=== PATIENT | female | born 1985 | race Caucasian/White ===

== ENCOUNTER 2017-02-23 16:29 | Emergency (ER) | payer OTHER, BC ==
[~2017-02-23] VITALS: Ht 162.6 cm; Wt 85.0 kg
[~2017-02-23 16:29] MED LIST: CALC500C3; PRENTAB26 PO
[2017-02-23 16:48] VITALS: TEMP 36.7; Ht 162.6 cm; Wt 85.0 kg
[2017-02-23] MEDS ORDERED: SODIUM CHLORIDE 0.9% 1000ML 1,000 ML IV STA (17:13)
[2017-02-23 17:43] LABS: BASO % 0.4 %; BASO ABS # 0.04 K/uL (0-0.2); COMPLETE YES; EOS % 1.8 %; HEMATOCRIT 42.3 % (37-47); IG% 0.2 %; LYMPH % 30.6 %; LYMPH ABS # 3.37 K/uL (1.2-3.4); MEAN CELL VOLUME 84.6 fL (80-100); MEAN CORPUSCULAR HGB CONC 34.3 g/dl (32-36); MONO % 6.4 %; NEUT % 60.6 %; PLATELET COUNT 327 K/uL (130-400); WHITE BLOOD COUNT 11.02 K/uL (4.8-10.8)
[2017-02-23 17:52] LABS: INR 0.9 (0.9-1.1); PROTHROMBIN TIME (PATIENT) 9.6 SECONDS (9.0-12.0)
--- NOTE | 2017-02-23 17:53 | DIAGNOSTIC IMAGING REPORT ---
CHEST ONE VIEW PORTABLE CLINICAL HISTORY: Altered mental status. Weakness. COMPARISON STUDY: No previous studies for comparison. FINDINGS: The cardiac and mediastinal contours are normal. There is no evidence of focal pulmonary consolidation. There is no evidence of failure. No pleural effusions are visualized.[ IMPRESSION: No active disease in the chest. Electronically signed by: Milton Green M.D. 02/23/2017 5:52 PM Dictated Date/Time: 02/23/2017 5:52 PM
[2017-02-23 17:57] LABS: ALT/SGPT 30 U/L (12-78); BLOOD UREA NITROGEN 10 mg/dl (7-18); BUN/CREATININE RATIO 12.6 (10-20); CALCIUM 9.2 mg/dl (8.5-10.1); CARBON DIOXIDE 25 mmol/L (21-32); CHLORIDE 108 mmol/L (98-107); CREATININE 0.78 mg/dl (0.60-1.20); GLUCOSE 89 mg/dl (70-99); MAGNESIUM 2.1 mg/dl (1.8-2.4); POTASSIUM 3.9 mmol/L (3.5-5.1); SODIUM 138 mmol/L (136-145)
[2017-02-23 18:05] LABS: ALKALINE PHOSPHATASE 63 U/L (45-117); AST/SGOT 17 U/L (15-37); CKMB/CK RATIO 0.6 (0-3.0)
[2017-02-23 18:32] LABS: PREG INTERNAL NEGATIVE QC NEG CLEAR BACKGROUND; PREG INTERNAL POSITIVE QC POS CONTROL LINE
[2017-02-23 18:38] LABS: URINE APPEARANCE CLEAR (CLEAR); URINE BILIRUBIN NEG (NEG); URINE COLOR YELLOW; URINE NITRITE NEG (NEG); UROBILINOGEN NEG (NEG); ZZUR CULT IF INDIC CLEAN CATCH NO
[2017-02-23 19:12] LABS: MANUAL MICROSCOPIC REQUIRED? NO; REVIEW REQ? NO
--- NOTE | 2017-02-23 19:22 | DIAGNOSTIC IMAGING REPORT ---
CT HEAD WITHOUT CONTRAST (CT) CLINICAL HISTORY: Severe headache COMPARISON STUDY: No previous studies for comparison. TECHNIQUE: Axial CT of the brain is performed from the vertex to the skull base. IV contrast was not administered for this examination. A dose lowering technique was utilized adhering to the principles of ALARA. CT DOSE: 537.48 mGy.cm FINDINGS: No intra or extra-axial mass lesions are visualized. There is no CT evidence of acute cortical infarction. There is no evidence of midline shift. There is no acute hemorrhage. No calvarial fractures are visualized. There is no evidence of pathologic ventricular dilatation. There is no evidence of acute sinusitis IMPRESSION: Normal noncontrast head CT. Electronically signed by: Milton Green M.D. 02/23/2017 7:21 PM Dictated Date/Time: 02/23/2017 7:20 PM
[2017-02-23 19:24] VITALS: BP 138/82; PULSE 62; O2SAT 98
--- NOTE | 2017-02-23 19:32 | EMERGENCY ROOM VISIT NOTE ---
History Report prepared by Akin: Mitra Marroquin Under the Supervision of: Dr. Niles Cervantes D.O. First contact with patient: 17:05 Chief Complaint: HYPERTENSION Stated Complaint: DIZZY,NUMBNESS,HIGH BLOOD PRESSURE History of Present Illness The patient is a 31 year old female who presents to the Emergency Room with complaints of persistent dizziness that began around 1430. The patient states that while at work today she bent over and suddenly became dizzy. She states that she sat back up and continued to feel dizzy, but then became hot, diaphoretic, nauseous, and tingly. 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 She was found to be hypertensive at 167/90 mmHg. The patient states that she has been having headaches once per week, noting that last night she took ibuprofen for a headache. She states that this morning she still noticed a slight headache. The patient states that she is on control and Wellbutrin. She states that her last normal menstrual period was three weeks ago. The patient denies any recent cold, fever, chest pain, or shortness of breath. Source of History: patient Onset: 1430 Position: other (global) Quality: other (dizziness) Timing: other (persistent) Associated Symptoms: + diaphoresis, + nausea, No fevers, No chest pain, No SOB Note: Associated Symptoms: tingling, hypertensive, feeling hot Review of Systems See HPI for pertinent positives & negatives. A total of 10 systems reviewed and were otherwise negative. Past Medical & Surgical Surgical Problems: (1) S/P appendectomy Family History No pertinent family history stated. Social History Smoking Status: Current Every Day Smoker Marital Status: Housing Status: lives with significant other Occupation Status: employed Current/Historical Medications Scheduled Calcium Carbonate (Tums), 2 PRN Multivit/Min/Iron/Fol Ac/Pren ( Vitamin), 1 TAB PO DAILY Allergies Coded Allergies: No Known Allergies (Verified Allergy, Mild, 11/13/06) Physical Exam Vital Signs Date Time Temp Pulse Resp B/P (MAP) Pulse Ox O2 Delivery O2 Flow Rate FiO2 02/23/17 19:24 62 20 138/82 98 Room Air 02/23/17 18:28 85 18 141/93 100 Room Air 02/23/17 17:34 70 02/23/17 17:30 78 18 143/84 98 Room Air 02/23/17 17:20 81 18 148/73 98 Room Air 78 143/84 81 139/89 02/23/17 16:48 36.7 88 20 161/100 97 Room Air Physical Exam CONSTITUTIONAL/VITAL SIGNS: Reviewed / noted above. GENERAL: Non-toxic in appearance. INTEGUMENTARY: Warm, dry, and [place]. HEAD: Normocephalic. EYES: without scleral icterus or trauma. ENT/OROPHARYNX: clear and moist. LYMPHADENOPATHY/NECK: Is supple without lymphadenopathy or meningismus. RESPIRATORY: Lungs clear and equal. CARDIOVASCULAR: Regular rate and rhythm. GI/ABDOMEN: Soft and nontender. No organomegaly or pulsatile mass. No rebound or guarding. Normal bowel sounds. EXTREMITIES: Warm and well perfused. BACK: No CVA tenderness. NEUROLOGICAL: Intact without focal deficits. PSYCHIATRIC: normal affect. MUSCULOSKELETAL: Normally developed with good muscle tone. Medical Decision & Procedures ER Provider Diagnostic Interpretation: Radiology results as stated below per my review and radiologist interpretation: CHEST ONE VIEW PORTABLE CLINICAL HISTORY: Altered mental status. Weakness. COMPARISON STUDY: No previous studies for comparison. FINDINGS: The cardiac and mediastinal contours are normal. There is no evidence of focal pulmonary consolidation. There is no evidence of failure. No pleural effusions are visualized.[ IMPRESSION: No active disease in the chest. Electronically signed by: Milton Green M.D. 02/23/2017 5:52 PM Dictated Date/Time: 02/23/2017 5:[address] HEAD WITHOUT CONTRAST (CT) CLINICAL HISTORY: Severe headache COMPARISON STUDY: No previous studies for comparison. TECHNIQUE: Axial CT of the brain is performed from the vertex to the skull base. IV contrast was not administered for this examination. A dose lowering technique was utilized adhering to the principles of ALARA. CT DOSE: 537.48 mGy.cm FINDINGS: No intra or extra-axial mass lesions are visualized. There is no CT evidence of acute cortical infarction. There is no evidence of midline shift. There is no acute hemorrhage. No calvarial fractures are visualized. There is no evidence of pathologic ventricular dilatation. There is no evidence of acute sinusitis IMPRESSION: Normal noncontrast head CT. Electronically signed by: Milton Green M.D. 02/23/2017 7:21 PM Dictated Date/Time: 02/23/2017 7:20 PM Laboratory Results 02/23/17 17:25 Red Blood Count 5.00, Mean Corpuscular Volume 84.6, Mean Corpuscular Hemoglobin 29.0, Mean Corpuscular Hemoglobin Concent 34.3, Mean Platelet Volume 10.0, Neutrophils (%) (Auto) 60.6, Lymphocytes (%) (Auto) 30.6, Monocytes (%) (Auto) 6.4, Eosinophils (%) (Auto) 1.8, Basophils (%) (Auto) 0.4, Neutrophils # (Auto) 6.68, Lymphocytes # (Auto) 3.37, Monocytes # (Auto) 0.71, Eosinophils # (Auto) 0.20, Basophils # (Auto) 0.04 02/23/17 17:25 Test 02/23/17 17:25 02/23/17 18:19 White Blood Count 11.02 K/uL (4.8-10.8) Red Blood Count 5.00 M/uL (4.2-5.4) Hemoglobin 14.5 g/dL (12.0-16.0) Hematocrit 42.3 % (37-47) Mean Corpuscular Volume 84.6 fL (80-100) Mean Corpuscular Hemoglobin 29.0 pg (25-34) Mean Corpuscular Hemoglobin Concent 34.3 g/dl (32-36) Platelet Count 327 K/uL (130-400) Mean Platelet Volume 10.0 fL (7.4-10.4) Neutrophils (%) (Auto) 60.6 % Lymphocytes (%) (Auto) 30.6 % Monocytes (%) (Auto) 6.4 % Eosinophils (%) (Auto) 1.8 % Basophils (%) (Auto) 0.4 % Neutrophils # (Auto) 6.68 K/uL (1.4-6.5) Lymphocytes # (Auto) 3.37 K/uL (1.2-3.4) Monocytes # (Auto) 0.71 K/uL (0.11-0.59) Eosinophils # (Auto) 0.20 K/uL (0-0.5) Basophils # (Auto) 0.04 K/uL (0-0.2) RDW Standard Deviation 36.9 fL (36.4-46.3) RDW Coefficient of Variation 12.0 % (11.5-14.5) Immature Granulocyte % (Auto) 0.2 % Immature Granulocyte # (Auto) 0.02 K/uL (0.00-0.02) Prothrombin Time 9.6 SECONDS (9.0-12.0) Prothromb Time International Ratio 0.9 (0.9-1.1) Activated Partial Thromboplast Time 26.0 SECONDS (21.0-31.0) Partial Thromboplastin Ratio 1.0 Anion Gap 5.0 mmol/L (3-11) Est Creatinine Clear Calc Drug Dose 108.2 ml/min Estimated GFR () 115.8 Estimated GFR (Non- 99.9 BUN/Creatinine Ratio 12.6 (10-20) Calcium Level 9.2 mg/dl (8.5-10.1) Magnesium Level 2.1 mg/dl (1.8-2.4) Total Bilirubin 0.3 mg/dl (0.2-1) Direct Bilirubin < 0.1 mg/dl (0-0.2) Aspartate Amino Transf (AST/SGOT) 17 U/L (15-37) Alanine Aminotransferase (ALT/SGPT) 30 U/L (12-78) Alkaline Phosphatase 63 U/L (45-117) Total Creatine Kinase 163 U/L (26-192) Creatine Kinase MB 0.9 ng/ml (0.5-3.6) Creatine Kinase MB Ratio 0.6 (0-3.0) Total Protein 7.5 gm/dl (6.4-8.2) Albumin 3.9 gm/dl (3.4-5.0) Lipase 211 U/L (73-393) Thyroid Stimulating Hormone (TSH) 1.470 uIu/ml (0.300-4.500) Human Chorionic Gonadotropin, Qual NEG (NEG) Urine Color YELLOW Urine Appearance CLEAR (CLEAR) Urine pH 6.0 (4.5-7.5) Urine Specific [place] 1.010 (1.000-1.030) Urine Protein NEG (NEG) Urine Glucose (UA) NEG (NEG) Urine Ketones NEG (NEG) Urine Occult Blood NEG (NEG) Urine Nitrite NEG (NEG) Urine Bilirubin NEG (NEG) Urine Urobilinogen NEG (NEG) Urine Leukocyte Esterase NEG (NEG) Urine WBC (Auto) 0 /hpf (0-5) Urine RBC (Auto) 0-4 /hpf (0-4) Urine Hyaline Casts (Auto) 0 /lpf (0-5) Urine Epithelial Cells (Auto) 10-20 /lpf (0-5) Urine Bacteria (Auto) NEG (NEG) Laboratory results as stated above per my review. Medications Administered Medications (Trade) Dose Ordered Sig/Nickie Route Start Time Stop Time Status Last Admin Dose Admin Sodium Chloride 1,000 ml @ 999 mls/hr Q1H1M STAT IV 02/23/17 17:13 02/23/17 18:13 DC 02/23/17 17:13 999 MLS/HR ECG Indication: other (dizziness, hypertensive) Rate (beats per minute): 60 Rhythm: normal sinus Findings: no acute ischemic change, no ectopy ED Course 1705: Previous medical records were reviewed. The patient was evaluated in room A5. A complete history and physical examination was performed. 1712: Ordered Sodium Chloride 1000 ml @ 999 mls/hr IV. 1926: I reevaluated the patient and she is doing well. I discussed the exam findings with her and I discussed the treatment plan. She verbalized complete understanding and agreement. She is ready to go home. Medical Decision Differentials include: Acute coronary syndrome, myocardial infarction, CVA, TIA , anemia, infection, pneumonia, UTI, pyelonephritis, poor nutrition, dehydration , electrolyte disturbance, and hypoglycemia. This is a 31-year-old female who presents to the ED with a chief complaint of high blood pressure. The patient states that around 2:30 PM she was at work. 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 It was 167/90. She contacted her doctor and was referred here. The patient's last menstrual periods 3 weeks ago. She denies any recent illness, fevers, chest pains or shortness of breath. She denies any unusual headaches. Her blood pressure here was 161/100. This may be related to new onset hypertension versus situational hypertension. CBC and complete metabolic panel are normal. test is negative. TSH is normal. A chest x-ray is negative for acute disease. EKG shows normal sinus rhythm at a rate of 75. CT scan of the brain was normal and urine did not show infection. The patient's blood pressure at the end of her evaluation was 138/82. The patient was told to have this rechecked later this week by her PCP. She is felt to be stable for discharge. Medication Reconcilliation Current Medication List: was personally reviewed by me Blood Pressure Screening Patient's blood pressure: Elevated blood pressure Blood pressure disposition: Referred to PCP Impression Primary Impression: Dizziness Scribe Attestation The scribe's documentation has been prepared under my direction and personally reviewed by me in its entirety. I confirm that the note above accurately reflects all work, treatment, procedures, and medical decision making performed by me. Departure Information Dispostion Home / Self-Care Referrals iDana Mcmahan M.D. (PCP) Patient Instructions My [facility] Additional Instructions Follow-up with your doctor for further care and evaluation in 1-2 days. Return to the emergency department for worsening or new symptoms or any concerns. You have been examined and treated today on an emergency basis only. This is not a substitute for, or an effort to provide, complete comprehensive medical care. It is impossible to recognize and treat all injuries or illnesses in a single emergency department visit. It is therefore important that you follow up closely with your doctor. Call as soon as possible for an appointment. Have your blood pressure rechecked later this week.
[2017-02-23] MEDS ORDERED: BCPILLS PO (19:35)
[2017-02-23] MEDS ORDERED: BUPR-79 PO (19:36)
== END 2017-02-23 19:51 | disposition home or self-care (01) ==
LOC: C.EDB 16:31 → C.EDA 19:51
DX: R42 Dizziness and giddiness (principal); F17.200 Nicotine dependence, unspecified, uncomplicated; Z98.890 Other specified postprocedural states

== ENCOUNTER 2019-07-01 07:32 | Inpatient (IN) ==
--- OUTSIDE RECORDS SUMMARY | 2019-07-01 07:35 | External Medical Summary | Continuity of Care Document ---
:1985 Author Name Melody Bronson Address Unavailable Unavailable , Care Team Providers Name Role Phone Gold Guadarrama DO Unavailable [email or web address] [email or web address], UNKNOWN Unavailable Unavailable Unavailable Unavailable Unavailable Problems Active medical history not documented Allergies and Adverse Reactions No Known Drug Allergies (Allergy) Medications Medications not documented Procedures History of Laparoscopy With Salpingostomy Status: Completed History of Appendectomy Status: Complete d History of Oral Surgery Tooth Extraction Status: Completed Immunizations Immunizations not documented Family History Father Family history of Hypertension (V17.49) Status: Active Family history of Pure Hypercholesterolemia Status: Active Mother Family history of Graves' Disease Status: Active Family history of Breast Cancer (V16.3) Status: Active Unknown Family Member Family history of Seizure Status: Active Comments: [place] History Plan of Treatment Planned Observations Planned Goals not documented Results No Known Results Results not documented
[2019-07-01] MEDS ORDERED: OXYTOCIN 30 UNITS/500 ML BAG IV PRN ×2 (09:40→22:29)
--- NOTE | 2019-07-01 09:54 | History & Physical Report ---
Date of Service July 01, 2019 Assessment & Plan (1) Gestational [-induced] hypertension without significant pro teinuria, complicating childbirth: 33 yo at 39 wks with recent elevation in BP with normal protein in urine IOL at term GBS+ LGA at 37 wks US : 8 lb Today's bed side US: 3993 gr Discussed possible risk of shoulder dystocia Understands all and desires trial of labor Plan to admit, monitor, cervical ripening with Cervidil, PCN for pain (2) GBS (group B Streptococcus carrier), +RV culture, currently : History of Present Illness Primary Care Provider: Diana Mcmahan MD Patient is a 33 yo at 39 wks who was scheduled for IOL at term for recently elevated BP and protein in urine in office 2+ at office but 24 hour total urine protein was <300 She has no complaints She has remote h/o of HT for which she used 12.5 mg HCTZ for 6 months and stopped Her BP's have been normal during this until this week No OLIVER/ Change in vision/ N&V/ epig or RUQ pain +FM Her has been complicated by 1) AMA 2) h/o ECTOPIC 3) GBS+ Allergies Allergy/AdvReac Type Severity Reaction Status Date / Time No Known Allergies Allergy Mild Verified 11/13/ 08:08 Home Medications Home Medications Medication Instructions Recorded Confirmed Type PNV cmb#95-ferrous fumarate-FA 1 tab PO DAILY 07/01/19 07/01/19 History [] bupropion HCl [Wellbutrin XL] 150 mg PO QAM 07/01/19 07/01/19 History Patient History Medical History Abnormal Pap smear of vagina 2009 Anxiety History of cold sores Ruptured ectopic 2007 Surgical History History of tonsillectomy and adenoidectomy 2010 Hx of appendectomy 1999 [place] teeth removed 2006 Family History Father Hypertension Social History Preferred Language: Bengali Communication Ability: Effective 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 Beliefs That Will Affect Care: None marital status: Current Living Situation: Spouse Other Information That Helps Us Care for You: No Feels Safe at Home: Yes Safety Concerns: Feels Safe At This Time Smoking Status: Former smoker Smoking End Date: 06/2018 ; Second Hand Exposure: No ; Tobacco Cessation Education Requested by Patient: No Hx Alcohol Use: No Hx Substance Use: No OB History FT in 2009, 7' 9" 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 Review of Systems All systems reviewed & are unremarkable except as noted in HPI & below Physical Exam Constitutional: well developed and well nourished NAD Gastrointestinal (Abdomen): Soft, NT, Gravid Bed side US done: EFW 3992 gr, vertex Genitourinary: normal external appearance Manual OB Exam: + cervical dilation 2 cm, + cervical effacement 10% and + station high Cervix posterior and firm Results & Data Vital Signs (Past 12 Hours) Vital Signs Temp Pulse Resp BP 07/01/19 08:29 103 H 176/90 H 07/01/19 08:14 94 H 176/83 H 07/01/19 08:13 36.9 C 102 H 20 147/93 H 07/01/19 07:59 102 H 147/93 H Monitoring External Monitor FHR reactive, 140's Tocodynamometer No ctxs
[2019-07-01] MEDS ORDERED: PENICILLIN G POTASSIUM 6 MU in DEXTROSE 5% 250 ML IV ONE (10:00)
[2019-07-01] MEDS ORDERED: DINOPROSTONE 10 MG INSERT PV ONE (10:00)
[2019-07-01 10:14] LABS: Hematocrit (blood only) 34.4 % (37-47); Hemoglobin 11.7 g/dL (12.0-16.0); Mean Corpuscular Hemoglobin 28.5 pg (25-34); Mean Corpuscular Volume 83.9 fL (80-100); Mean Platelet Volume 10.3 fL (7.4-10.4); Platelet Count 244 K/uL (130-400); RDW Coefficient of Variation 13.7 % (11.5-14.5); RDW Standard Deviation 41.3 fL (36.4-46.3); White Blood Count 11.87 K/uL (4.8-10.8)
[2019-07-01] MEDS: LACTATED RINGER'S 1,000 ML IV PRN (10:28)
[2019-07-01 10:33] LABS: Albumin Level 2.7 gm/dl (3.4-5.0); BUN Creatinine Ratio 11.2 (10-20); Calcium 8.9 mg/dl (8.5-10.1); Creatinine Clr Calc Pharmacy 124.7 ml/min; Est GFR (African American) 123.7; Est GFR (Non-African American) 106.7; Potassium 4.1 mmol/L (3.5-5.1)
[2019-07-01 10:36] LABS: Albumin Globulin Ratio 0.7 (0.9-2); Bilirubin,Total 0.2 mg/dl (0.2-1); Globulin 3.7 gm/dl (2.5-4.0); Total Protein 6.4 gm/dl (6.4-8.2)
[2019-07-01] MEDS ORDERED: LABETALOL HCL 100 MG TAB PO STA (13:46)
[2019-07-01] MEDS: PENICILLIN G POTASSIUM 3 MU in DEXTROSE 5% 100 ML IV PRN ×3 (15:05→23:42)
--- NOTE | 2019-07-01 17:16 | Obstetrical Progress Note ---
Date of Service July 01, 2019 Subjective Late entry from 1630 Patient is reevaluated She feels well, only mild cramping on and off No ctxs/ LF/VB +FM's Pain is 1/10 FHR reassuring Labs WNL Started on Labetalol for HTN Continue to monitor and cervical ripenin Results & Data Vital Signs (Past 12 Hours) Vital Signs Temp Pulse Resp BP 07/01/19 17:00 71 137/80 07/01/19 16:03 80 132/78 07/01/19 15:03 76 141/90 H 07/01/19 13:58 90 138/85 07/01/19 13:37 87 160/89 H 07/01/19 13:35 20 07/01/19 12:45 76 166/90 H 07/01/19 12:33 80 186/96 H 07/01/19 12:02 84 142/88 H 07/01/19 11:26 76 155/90 H 07/01/19 11:11 81 158/92 H 07/01/19 11:10 81 20 151/84 H 07/01/19 10:55 83 154/82 H 07/01/19 10:40 86 187/104 H 07/01/19 10:22 90 20 174/80 H 07/01/19 08:29 103 H 176/90 H 07/01/19 08:14 94 H 176/83 H 07/01/19 08:13 36.9 C 102 H 20 147/93 H 07/01/19 07:59 36.9 C 102 H 20 147/93 H
[2019-07-01] MEDS ORDERED: CALCIUM CARBONATE 500 MG CHEWABLE TAB ONE (18:59)
[2019-07-01] MEDS ORDERED: BUTORPHANOL TARTRATE 1 MG/ML VIAL IV PRN (22:29)
--- NOTE | 2019-07-01 22:29 | Obstetrical Progress Note ---
Date of Service July 01, 2019 Subjective Patient is reevaluated She feels cramping more often Pain is 2/10 No LOF/VB +FM VE; 3/ 50%/ -3, Cervidil is removed FHR 130's categ I [place]: ctxs q1-3 min Plan to diet and monitor, start Pitocin when ctxs will space out Results & Data Vital Signs (Past 12 Hours) Vital Signs Temp Pulse Resp BP 07/01/19 21:23 70 134/82 07/01/19 19:54 93 H 139/80 07/01/19 18:27 82 125/66 07/01/19 17:00 71 137/80 07/01/19 16:03 80 132/78 07/01/19 15:04 36.6 C 18 07/01/19 15:03 76 141/90 H 07/01/19 13:58 90 138/85 07/01/19 13:37 87 160/89 H 07/01/19 13:35 20 07/01/19 12:45 76 166/90 H 07/01/19 12:33 80 186/96 H 07/01/19 12:02 84 142/88 H 07/01/19 11:26 76 155/90 H 07/01/19 11:11 81 158/92 H 07/01/19 11:10 81 20 151/84 H 07/01/19 10:55 83 154/82 H 07/01/19 10:40 86 187/104 H
[2019-07-02] MEDS ORDERED: miSOPROStoL 50 MCG TAB PO ONE (02:18)
[2019-07-02] MEDS: CALCIUM CARBONATE 500 MG CHEWABLE TAB PO PRN ×3 (03:01→17:19)
[2019-07-02] MEDS: PENICILLIN G POTASSIUM 3 MU in DEXTROSE 5% 100 ML IV PRN ×4 (03:53→16:27)
--- NOTE | 2019-07-02 09:26 | Obstetrical Progress Note ---
Date of Service July 02, 2019 Subjective Pt doing well No complaints induction for gestational HTN VE: 3/50/-2 starting Pitocin pt agrees with plan Results & Data Vital Signs (Past 12 Hours) Vital Signs Temp Pulse Resp BP 07/02/19 08:02 72 151/84 H 07/02/19 07:47 83 131/80 07/02/19 07:32 69 144/68 H 07/02/19 07:17 66 152/73 H 07/02/19 07:02 84 166/76 H 07/02/19 07:00 36.9 C 75 20 176/92 H 07/02/19 06:29 36.9 C 78 18 139/84 07/02/19 03:05 36.9 C 86 18 136/95 07/02/19 00:53 76 132/74 07/01/19 22:58 36.6 C 18 07/01/19 22:57 75 137/91 07/01/19 22:40 78 136/75
[2019-07-02] MEDS: LACTATED RINGER'S 1,000 ML IV PRN (12:34)
[2019-07-02] MEDS ORDERED: BUPIVACAINE 0.25% 30 ML VIAL ONE (13:36)
[2019-07-02] MEDS ORDERED: fentaNYL citrate 100 MCG/2 ML VIAL ONE (13:36)
[2019-07-02] MEDS ORDERED: fentaNYL 2MCG/ML ROPIV 1.25MG/ML 100 ML BAG EPI ONE (13:36)
[2019-07-02] MEDS ORDERED: ePHEDrine sulfate 50 MG/ML AMP ONE (13:36)
--- NOTE | 2019-07-02 13:39 | Anesthesiology Consultation ---
Date of Service July 02, 2019 Assessment & Plan Chart Review Chart Review: Acceptable Risk for Labor Epidural Consults Requested none History Height/Weight Height: 5 ft 4 in Weight: 101.605 kg Allergies Allergy/AdvReac Type Severity Reaction Status Date / Time No Known Allergies Allergy Mild Verified 11/13/06 08:08 Medications Home Medications Medication Instructions Recorded Confirmed Last Taken PNV cmb#95-ferrous fumarate-FA 1 tab PO DAILY 07/01/19 07/01/19 06/30/19 21:30 [] bupropion HCl [Wellbutrin XL] 150 mg PO QAM 07/01/19 07/01/19 07/01/19 05:30 Active Medications Generic Name Dose Route Start Last Admin Trade Name Freq PRN Reason Stop Dose Admin Calcium Carbonate 1,000 mg 07/01/19 18:56 07/02/19 09:26 Tums PO 07/31/19 18:55 1,000 mg Q8 PRN Administration Indigestion Lactated Ringer's 1,000 mls @ 150 mls/hr 07/01/19 09:40 07/02/19 12:34 Lr IV 07/03/19 09:39 150 mls/hr .Q6H40M PRN Administration L&D Protocol Protocol Penicillin G Potassium 3 mu/ 106 mls @ 100 mls/hr 07/01/19 09:40 07/02/19 12:34 Dextrose IV 07/11/19 09:39 100 mls/hr Q4H PRN Administration Give until delivery Oxytocin 30 units in 500 mls @ 16 mls/hr 07/01/19 22:29 07/02/19 13:00 Pitocin IV 07/03/19 22:28 0.96 units/hr .Q24H PRN 16 mls/hr Labor Induction/Augmentation Titration Protocol 0.96 UNITS/HR Past Medical History Medical History Abnormal Pap smear of vagina 2009 Anxiety History of cold sores Ruptured ectopic 2006 Past Family History Family History Father Hypertension Past Surgical History Surgical History History of tonsillectomy and adenoidectomy 2009 Hx of appendectomy 1999 [place] teeth removed 2005 Social History Smoking Status: Former smoker Smoking End Date: 06/2018 Hx Alcohol Use: No Hx Substance Use: No Physical Exam Vital Signs Last Vital Signs Temp 36.9 C 07/02/19 07:02 Pulse 82 07/02/19 13:05 Resp 20 07/02/19 10:35 BP 144/87 H 07/02/19 13:05 Testing Laboratory Results 07/01/19 09:58 07/01/19 09:58
[2019-07-02] MEDS ORDERED: NALOXONE HCL 0.4 MG/1 ML VIAL/CARP IV PRN (13:40)
[2019-07-02] MEDS ORDERED: NALOXONE HCL 1 MG in SODIUM CHLORIDE 0.9% 1000ML 1,000 ML IV PRN (13:40)
[2019-07-02] MEDS ORDERED: DiphenhydrAMINE HCL 50 MG/ML VIAL IV PRN (13:40)
[2019-07-02] MEDS ORDERED: ePHEDrine sulfate 50 MG/ML AMP IV PRN (13:40)
[2019-07-02] MEDS ORDERED: fentaNYL 2MCG/ML ROPIV 1.25MG/ML 100 ML BAG EPI PRN (13:40)
[2019-07-02] MEDS ORDERED: NALBUPHINE HCL INJ 10 MG/ML AMP IV PRN (13:40)
[2019-07-02] MEDS ORDERED: ACETAMINOPHEN W/CODEINE #3 1 TAB PO PRN (18:43)
[2019-07-02] MEDS ORDERED: bisacodyL 10 MG SUPP PR PRN (18:43)
[2019-07-02] MEDS ORDERED: ACETAMINOPHEN 325 MG TAB PO PRN (18:43)
[2019-07-02] MEDS ORDERED: SUPERCREAM 0.870% 15 GM JAR EXT PRN (18:43)
[2019-07-02] MEDS ORDERED: BENZOCAINE 20% AER SPR 82.5 GM CAN EXT PRN (18:43)
[2019-07-02] MEDS ORDERED: DIPHTHERIA/TETANUS/PERTUSSIS 0.5 ML SYR/VIAL IM ONE (18:43)
[2019-07-02] MEDS ORDERED: HYDROCORTISONE ACETATE 25 MG SUPP PR PRN (18:43)
[2019-07-02] MEDS ORDERED: OXYCODONE/ACETAMINOPHEN 5mg/325mg TAB PO PRN (18:43)
[2019-07-02] MEDS ORDERED: OXYTOCIN 30 UNITS/500 ML BAG IV PRN (18:43)
[2019-07-02] MEDS ORDERED: miSOPROStoL 200 MCG TAB PR ONE (18:45)
[2019-07-02] MEDS ORDERED: miSOPROStoL 200 MCG TAB ONE ×2 (18:48→18:54)
[2019-07-02] MEDS: IBUPROFEN 600 MG TAB PO PRN (20:10)
[2019-07-02] MEDS ORDERED: OXYTOCIN 20 UNITS in LACTATED RINGER'S 1,000 ML IV SCH (20:45)
[2019-07-02] MEDS: DOCUSATE SODIUM 100 MG CAP PO SCH (21:08)
--- NOTE | 2019-07-03 04:20 | Anesthesia Procedure Note ---
Date of Service July 03, 2019 Anesthesia Post Epidural Note Vital Signs Vital Signs: Temp Pulse Resp BP Pulse Ox 36.3 C L 77 18 138/94 93 07/03/19 00:00 07/03/19 00:00 07/03/19 00:00 07/03/19 00:00 07/02/19 18:28 Pain Intensity Bilateral Anterior Abdomen: Pain Intensity: 0 Notes Mental Status: alert / awake / arousable Nausea / Vomiting: adequately controlled Pain: adequately controlled Airway Patency, RR, SpO2: stable & adequate BP & HR: stable & adequate Hydration State: stable & adequate Neuraxial Anesthesia: was administered and sensory block is resolving Anesthetic Complications: no major complications apparent and Pt Satisfied with anesthetic care Epidural: Removed without complications and With tip intact
[2019-07-03 06:39] LABS: Basophils # (auto) 0.03 K/uL (0-0.2); Basophils % (auto) 0.2 %; Eosinophils # (auto) 0.17 K/uL (0-0.5); Eosinophils % (auto) 1.2 %; Hematocrit (blood only) 33.1 % (37-47); Immature Granulocytes # (auto) 0.04 K/uL (0.00-0.02); Immature Granulocytes % (auto) 0.3 %; Lymphocytes # (auto) 2.61 K/uL (1.2-3.4); Lymphocytes % (auto) 18.1 %; Mean Corpuscular Hgb Conc 33.2 g/dL (32-36); Mean Corpuscular Volume 84.2 fL (80-100); Mean Platelet Volume 10.6 fL (7.4-10.4); Monocytes # (auto) 1.17 K/uL (0.11-0.59); Monocytes % (auto) 8.1 %; Neutrophils # (auto) 10.43 K/uL (1.4-6.5); Neutrophils % (auto) 72.1 %; Platelet Count 225 K/uL (130-400); RDW Coefficient of Variation 13.8 % (11.5-14.5); RDW Standard Deviation 42.1 fL (36.4-46.3); Red Blood Count 3.93 M/uL (4.2-5.4); White Blood Count 14.45 K/uL (4.8-10.8)
[2019-07-03 07:09] LABS: Albumin Level 2.3 gm/dl (3.4-5.0); Calcium 8.5 mg/dl (8.5-10.1); Est GFR (African American) 132.6; Est GFR (Non-African American) 114.4; Potassium 3.9 mmol/L (3.5-5.1)
[2019-07-03 07:12] LABS: Albumin Globulin Ratio 0.7 (0.9-2); Bilirubin,Total 0.5 mg/dl (0.2-1); Globulin 3.3 gm/dl (2.5-4.0); Total Protein 5.6 gm/dl (6.4-8.2)
[2019-07-03] MEDS: FERROUS SULFATE 325 MG TAB PO SCH (08:25)
[2019-07-03] MEDS: PRENATAL VITAMIN 1 TAB PO SCH (08:25)
[2019-07-03] MEDS: DOCUSATE SODIUM 100 MG CAP PO SCH ×2 (08:25→20:38)
--- NOTE | 2019-07-03 09:12 | Obstetrical Progress Note ---
Date of Service July 03, 2019 Assessment & Plan (1) normal course: PPD #1 INDUCTION FOR PREECLAMPSIA pt doing well stable PIH labs anticipate disch tomorrow Subjective Ambulation: ambulating normally Voiding: no voiding problems Passing Gas:: Yes Diet Tolerance:: regular diet Lochia:: Small Feeding Type:: breast feeding Review of Systems All systems reviewed & are unremarkable except as noted in HPI & below Physical Exam Constitutional WD/WN, vitals as above well developed and well nourished Eyes PERRL, conjunctivae normal, anicteric sclerae Neck trachea midline, no thyromegaly Respiratory normal respiratory effort, lungs clear to auscultation Auscultation: no crackles, no rales and no wheezes Cardiovascular RRR, no murmur, no edema Gastrointestinal (Abdomen) normal bowel sounds, soft, nontender, no hepatosplenomegaly Uterus is below umbilicus Musculoskeletal no cyanosis or clubbing, extremities motor strength 5/5 Skin no rashes, warm and dry Neurologic patellar DTR's 2+ bilat, sensation intact Psychiatric A+Ox3, euthymic affect Genitourinary normal external appearance Results & Data Vital Signs (Past 12 Hours) Vital Signs Temp Pulse Resp BP 07/03/19 04:25 36.3 C L 83 18 139/87 07/03/19 00:00 36.3 C L 77 18 138/94
[2019-07-03] MEDS: IBUPROFEN 600 MG TAB PO PRN (16:14)
[2019-07-03 17:06] VITALS: O2SAT 98
[2019-07-03] MEDS ORDERED: MEASLES, MUMPS & RUBELLA VIRUS VIAL SQ ONE (17:43)
[2019-07-03] MEDS ORDERED: bisacodyL 5 MG TABEC PO SCH (20:00)
[2019-07-03 23:51] VITALS: PULSE 86
[2019-07-04 06:33] LABS: Hematocrit (blood only) 31.7 % (37-47); Hemoglobin 10.8 g/dL (12.0-16.0)
[2019-07-04] MEDS: FERROUS SULFATE 325 MG TAB PO SCH (08:20)
[2019-07-04] MEDS: PRENATAL VITAMIN 1 TAB PO SCH (08:20)
[2019-07-04] MEDS: IBUPROFEN 600 MG TAB PO PRN (08:20)
[2019-07-04] MEDS: DOCUSATE SODIUM 100 MG CAP PO SCH (08:20)
[2019-07-04 08:42] VITALS: BP 133/86; TEMP 98.4
--- NOTE | 2019-07-04 09:28 | Delivery Summary ---
DATE OF OPERATION: 07/02/2019 This is a 33-year-old G2, P1 at term, who was admitted for induction for preeclampsia. She delivered today a live infant female in left occiput anterior presentation. There was no nuchal cord. Infant was delivered, placed on mother's abdomen. Cord was clamped and cut after 1 minute. Weight and Apgars in the pediatric record. Cord blood was obtained. Placenta was spontaneously delivered. Inspection of placenta shows a 3-vessel cord. Estimated blood loss was 400 mL. Inspection of the peritoneum shows a second-degree midline laceration which was repaired in layers with 0 Vicryl. There was good hemostasis post repair. The patient and mother are doing well in recovery. All instruments were removed from the vagina and accounted for x2 including sponges, retractors, and needles. I attest to the content of the Intraoperative Record and any orders documented therein. Any exception s are noted below.
--- NOTE | 2019-07-04 10:09 | Obstetrical Progress Note ---
Date of Service July 04, 2019 Subjective PPD#2 doing well tolerating diet well passing gas ambulating well Physical Exam Constitutional: WD/WN, vitals as above comfortable abdomen is soft fundus firm neg edema neg Kaitlin's for discharge today Results & Data Vital Signs (Past 12 Hours) Vital Signs Temp Pulse Resp BP Pulse Ox 07/04/19 07:45 36.9 C 86 18 133/86 98 07/04/19 00:30 133/72 07/03/19 23:20 36.8 C 86 20 148/84 H Laboratory Results Laboratory Results - last 48 hr 07/03/19 07/03/19 07/03/19 06:09 06:09 06:09 WBC 14.45 H RBC 3.93 L Hgb 11.0 L Hct 33.1 L MCV 84.2 MCH 28.0 MCHC 33.2 RDW Std Deviation 42.1 RDW Coeff of Anastacia 13.8 Plt Count 225 MPV 10.6 H Immature Gran % (Auto) 0.3 Neut % (Auto) 72.1 Lymph % (Auto) 18.1 Candler % (Auto) 8.1 Eos % (Auto) 1.2 Baso % (Auto) 0.2 Immature Gran # (Auto) 0.04 H Neut # (Auto) 10.43 H Lymph # (Auto) 2.61 Candler # (Auto) 1.17 H Eos # (Auto) 0.17 Baso # (Auto) 0.03 Sodium 137 Potassium 3.9 Chloride 109 H Carbon Dioxide 23 Anion Gap 5.0 BUN 7 Creatinine 0.66 Est Cr Clr Drug Dosing 138.0 Est GFR ( Amer) 132.6 Est GFR (Non-Af Amer) 114.4 Fasting Glucose 88 Calcium 8.5 Total Bilirubin 0.5 AST 29 ALT 19 Alkaline Phosphatase 125 H Lactate Dehydrogenase 242 Total Protein 5.6 L Albumin 2.3 L Globulin 3.3 Albumin/Globulin Ratio 0.7 L 07/04/19 06:18 WBC RBC Hgb 10.8 L Hct 31.7 L MCV MCH MCHC RDW Std Deviation RDW Coeff of Anastacia Plt Count MPV Immature Gran % (Auto) Neut % (Auto) Lymph % (Auto) Candler % (Auto) Eos % (Auto) Baso % (Auto) Immature Gran # (Auto) Neut # (Auto) Lymph # (Auto) Candler # (Auto) Eos # (Auto) Baso # (Auto) Sodium Potassium Chloride Carbon Dioxide Anion Gap BUN Creatinine Est Cr Clr Drug Dosing Est GFR ( Amer) Est GFR (Non-Af Amer) Fasting Glucose Calcium Total Bilirubin AST ALT Alkaline Phosphatase Lactate Dehydrogenase Total Protein Albumin Globulin Albumin/Globulin Ratio
== END 2019-07-04 12:20 | disposition home or self-care (01) | DRG 807 ==
LOC: 4S1 07:32 → 4S2 07-02 20:48